=== PATIENT | male | born 1975 | race Caucasian/White ===

== ENCOUNTER → 2017-04-06 | Outpatient (CLI) | payer BC ==
[~2017-04-06] MED LIST: AMLODIPINE BESYL5 MG PO; AUGMENTIN875 MG PO; HYDROCODONE 5MG/5 MG PO; MAALOX DPS30 ML PO; SURFAK DPS240 MG PO; TYLENOL DPS325 MG PO; ZESTRIL DPS5 MG PO
--- NOTE | 2017-04-10 15:48 | SS ---
ADMIT: 04/06/2017 RM/LOC: [facility] MR#: [id number] [address] [id number] L[address] POLLARD [address] [place] [id number] Sleep Study SEX: M AGE: 41 : 1975 STUDY DATE: 04/06/2017 CLINICAL HISTORY: A 41-year-old male, body mass index of 36.2, 69 inches tall, 245 pounds, with symptoms of snoring, daytime sleepiness, difficulties with memory, who is undergoing evaluation for obstructive sleep apnea. TECHNICAL DESCRIPTION: Diagnostic polysomnogram performed on night of 04/06/2017, attended by a trained electrophysiology technologist. DIAGNOSTIC POLYSOMNOGRAM FINDINGS: SLEEP: Total time in bed 436.5 minutes, total sleep time 346.5 minutes, sleep efficiency 79.4%. 46.3% hours spent in stage II sleep, 8.6% hours spent in stage REM. BREATHING: [id number]-[id number] obstructive and central sleep apnea with apnea- hypopnea index of 11.3. During the study, there were 25 central apneas, 12 obstructive apneas, and 28 obstructive hypopneas noted. Though, some REM predominance noted. OXYGEN SATURATION: Mean sleeping oxygen 92%. Lowest oxygen saturation 87%. 1.6% hours spent in saturating 80% to 89%. CARDIAC: Average heart rate is 71 beats per minute. MOVEMENTS/POSITION: During the study, patient slept predominantly in the lateral position, brief time in the supine position with periodic leg movement index of 25.8. IMPRESSION AND PLAN: [id number]-[id number] obstructive and central sleep apnea with apnea-hypopnea 11.3. There was a combination of both obstructive and central apneas noted. Recommendations include CPAP titration. Recommend losing weight, avoiding sedatives and alcohol, refrain from driving if excessively sleepy. Recommend avoiding sleeping in supine position. Clinical correlation needed. CPAP titration is recommended. Meet Riggs MD/ quyen JOB #: [id number] CC: Ermias Greene MD, Attending Physician Otis Kramer DO, Family Physician Ermias Greene MD
== END | disposition home or self-care (01) ==
LOC: RESC 20:28
DX: G47.30 Sleep apnea, unspecified (principal)